=== PATIENT | female | born 1950 | race Two or more races ===

== ENCOUNTER 2016-05-09 18:42 | Emergency (ER) | payer SELFPAY ==
[2016-05-09] MEDS ORDERED: CEPHALEXIN 500 MG CAPSULE ONE (19:28)
--- NOTE | 2016-05-09 19:53 | RAD ---
Name: SHAVON VELEZ Exam: Right hand Comparison: None Clinical history: Lacerations from glass. Swelling and pain. Findings: 3 views right hand are submitted. 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 There is no fracture, dislocation, periosteal fracture foreign body. Carpal alignment is normal. Impression: 1. No acute bony normality 2. No radio opaque foreign body
== END 2016-05-09 20:32 | disposition home or self-care (01) ==
LOC: ED 18:42
DX: S61.411D Laceration without foreign body of right hand, subsequent encounter (principal); L08.9 Local infection of the skin and subcutaneous tissue, unspecified; W25.XXXD Contact with sharp glass, subsequent encounter; Y92.89 Other specified places as the place of occurrence of the external cause
CPT/HCPCS: 73130; 99283 ×2; A9270

== ENCOUNTER 2016-06-10 22:00 | Emergency (ER) | payer SELFPAY ==
[2016-06-10 22:51] LABS: SPECIFIC GRAVITY 1.015 (1.001-1.030); URINE BILIRUBIN NEGATIVE (NEGATIVE); URINE BLOOD 4+ (NEGATIVE); URINE GLUCOSE (UA) NEGATIVE (NEGATIVE); URINE LEUKOCYTE ESTERASE TRACE (NEGATIVE); URINE NITRITE NEGATIVE (NEGATIVE); URINE PROTEIN 2+ (NEGATIVE); URINE UROBILINOGEN NORMAL (0-1 mg/dl)
[2016-06-10 22:54] LABS: URINE APPEARANCE CLOUDY; URINE COLOR LIGHT PINK
[2016-06-10 23:02] LABS: URINE BACTERIA RARE; URINE RBC >100 /hpf; URINE WBC 20-30 /hpf
[2016-06-11] MEDS ORDERED: CEPHALEXIN 500 MG CAPSULE ONE (00:13)
[2016-06-11] MEDS ORDERED: PHENAZOPYRIDINE HCL 200 MG TABLET ONE (00:13)
== END 2016-06-11 00:34 | disposition home or self-care (01) ==
LOC: ED 22:00
DX: N39.0 Urinary tract infection, site not specified (principal)
CPT/HCPCS: 87086; 81001; 99283 ×2; A9270 ×2